=== PATIENT | male | born 1945 | race Two or more races ===

== ENCOUNTER → 2024-12-07 10:45 | Outpatient (REF) | payer OTHER, SELFPAY | LOC: RAD 10:45 | PROVIDERS: ATTENDING PHYSICIAN Student in an Organized Health Care Education/Training Program; FAMILY PHYSICIAN Family Medicine | DX: I35.0 Nonrheumatic aortic (valve) stenosis (principal) | CPT/HCPCS: 74174; 75572; Q9967 ==

== ENCOUNTER 2024-12-16 09:25 | Day surgery (SDC) | payer OTHER, SELFPAY ==
[2024-12-16] VITALS (20 sets, daily range): BP systolic 124–142; BP diastolic 53–99; BMI 27.9
[2024-12-16] MEDS: NSS 257 ML IV (10:02)
--- NOTE | 2024-12-16 10:43 | ITS.CL.PN ---
Airplane Rental Clerk - Procedure Note
Procedure
Procedure Note:
CARDIAC CATHETERIZATION REPORT
Date of Procedure: 12/16/2024
Referring: Dr. Carlito Bishop MD
Indication: Symptomatic severe aortic valve stenosis
PROCEDURE: coronary angiography
ACCESS: 6F right radial artery (closure: radial band)
CATHETERS
1. 6F JR4
2. 6F JL4
MODERATE SEDATION: 25 minutes of moderate sedation was utilized. An independent medical insurance claims specialist was present to assist with and help manage the patient's level of consciousness and physiologic status.
CORONARY ANGIOGRAPHY
Dominance: Right
LM: Large, normal
LAD: Large vessel giving rise to 3 small diagonal branches and wrapping around the apex. There are trivial luminal irregularities only.
LCx: Large vessel giving rise to a small OM1 and large OM 2. There are trivial luminal irregularities only.
RCA: Large vessel giving rise to a small RPDA and several small RPL branches. There are trivial luminal irregularities only.
RADIATION: dose 245 mGy; DAP 14.8 Gy*cm2; fluoroscopy time 3.3 min
CONCLUSION: Minimal coronary artery disease in a right dominant system
RECOMMENDATION: Proceed with TAVR
Copy to: Dr. Emmanuel Bishop MD (analyst market intelligence); Dr. Mireya Emerson DO (PCP)
Signed: Wellington Maria MD, PhD
[2024-12-16] MEDS: NSS 1000 IV (11:32)
--- NOTE | 2024-12-16 14:39 | PTCARENOTE ---
while pt getting dressed for discharge rt radial artery blead . pressure held and hematoma pushed out. dr mckeon in to assess site . will monitor pt for an additional 30 min. rt wrist soft and sl puffy and sl ecchomotic. otherwise intact.
--- NOTE | 2024-12-16 15:19 | PTCARENOTE ---
pt discharged after 30 min of observation per dr mckeon. rt wrist intact, no hematoma or bleeding .
== END 2024-12-16 15:21 | disposition home or self-care (01) ==
LOC: CATH 09:25
PROVIDERS: ATTENDING PHYSICIAN Student in an Organized Health Care Education/Training Program; FAMILY PHYSICIAN Family Medicine; OTHER PHYSICIAN Internal Medicine Cardiovascular Disease
DX: I35.0 Nonrheumatic aortic (valve) stenosis (principal); I25.10 Atherosclerotic heart disease of native coronary artery without angina pectoris; E78.5 Hyperlipidemia, unspecified; Z87.891 Personal history of nicotine dependence; R73.01 Impaired fasting glucose
CPT/HCPCS: 99152; 99153; 93454; C1894; Q9967

== ENCOUNTER 2025-02-16 04:48 | Inpatient (IN) | payer OTHER, SELFPAY ==
[2025-02-07 10:21] VITALS: BMI 28.0
--- NOTE | 2025-02-07 10:31 | HPS.HSE ---
Family Physician
-
Family Physician: Mireya Emerson, DO
Chief Complaint
-
fatigue
Pre-Evaluation for TAVR
History of Present Illness
Mr. Kaba is a very pleasant 79 yom with a past medical history significant for Aortic stenosis and hyperlipidemia. His most recent echocardiogram from 11/15/2024 is notable for an EF 68%, Aortic valve P/m 92/49, YFN 0.62, Pk jose alfredo: 4.8, DI 0.2, trace
AI, PAP 18, trace TR. Cardiac catheterization from 12/16/2024 demonstrated minimal CAD in a right dominant system. From a symptomatology standpoint, patient describes fatigue and positional dizziness that has progressed over the last six months.
Discussed the pathophysiology and treatment options of including SAVR and TAVR. Reviewed risks of the procedure including stroke, ppm, and vascular injury. Informed patient the need for dental clearance and the need for lifelong prophylactic
antibiotics prior to all dental procedures.
Assessed patient in preadmission testing and confirmed medication list. Will initiate aspirin 81 mg daily starting (02/08) and continue including the morning of TAVR. He will arrive at 0500 to the [facility]. Reviewed the risks of the procedure
including ppm,stroke, and vascular injury. Allowed for and answered questions
Medical History
Past Medical History
Past Medical History: Reports HTN, Valvular Disease (aortic stenosis), Psychiatric (anxiety/depression) and Other (RBBB, HLD, thoracic aortic ectasia, cataracts, ANGOON (H/A))
Past Surgical History: Reports Orthopedic (bilateral TKR), Tonsilectomy and Other ((R) inguinal hernia, cataract surgery)
Social History
Tobacco: Former Smoker
Alcohol: None
Drug: None
Personal:
Living: With Family
Employment: Retired
Family History
Family History: Not pertinent
Allergies / Home Medications
Allergies reflects when Allergies were last updated in [email or web address].
NKDA
Home Medications with original date entered in [email or web address]
amLODIPine Besylate 2.5 MG Tablet 1 tablet Orally Once a day
Celecoxib 200 MG Capsule 1 capsule Orally Once a day
Cephalexin 500 MG Capsule 1 capsule Orally twice a day for 7 days
Dutasteride 0.5 MG Capsule 1 capsule Orally Once a day
Lisinopril 20 MG Tablet 1 tablet Orally Once a day
Vitamin B12 100 MCG Tablet as directed Orally daily , Notes to Pharmacist: cyancobalamine
Allergy/Medication List:
NKDA
Review of Systems
-
History Source: Patient
A 12 point ROS was completed and negative except as noted: Yes
Constitutional: Reports Fatigue
Physical Exam
Physical Exam
General: Well Developed, Well Nourished, No Apparent Distress and Comfortable
HEENT: NormoCephalic
Respiratory: Clear
Cardiac: Regular Rhythm and Murmur (IV/ OMAR)
Breast: Deferred by me
GI: Soft, Non Tender and Non Distended
Rectal: Deferred by Provider
Genito-urinary: Deferred by me
Musculoskeletal: No Edema
Skin: Warm and Dry
Neuro: Awake, Alert, Oriented and AO x 3
Psych: Calm
Data Reviewed
-
Diagnostic Radiology: Report Reviewed by me
CT Scan: Report Reviewed by me and Discussed with Physician (TAVR CT scan reviewed with the heart team)
Medical Tests (Nuc Med, Echo, EKG etc): Report Reviewed by me (cardiac catheterization and echocardiogram reviewed with the heart team)
Lab Data: Labs Reviewed by me
Old Records: Reviewed
Impression/Plan
-
IMPRESSION/PLAN:
Aortic stenosis--TF TAVR planned for 02/16 utilizing a 34 mm Evolut with Allyssa Sinclair and Candace.
81 mg aspirin daily initiated 02/08
POD#06/23 echocardiogram
Cardiac rehab consult
Labs
-
Labs:
WBC 6.0 10^3/uL (4.8-10.8) 09/16/25 10:05
RBC 3.37 10^6/uL (4.70-6.10) L 02/07/25 10:05
Hgb 11.1 g/dL (13.0-18.0) L 02/07/25 10:05
Hct 32.7 % (39.0-52.0) L 02/07/25 10:05
Plt Count 136 10^3/uL (130-400) 02/07/25 10:05
Sodium 138 mmol/L (135-145) 02/07/25 10:05
Potassium 4.2 mmol/L (3.5-5.1) 02/07/25 10:05
Chloride 104 mmol/L (98-107) 02/07/25 10:05
Carbon Dioxide 28 mmol/L (22-30) 02/07/25 10:05
BUN 24 mg/dl (9-20) H 02/07/25 10:05
Creatinine 1.2 mg/dL (0.7-1.3) 02/07/25 10:05
eGFR > 60.00 02/07/25 10:05
Glucose 85 mg/dl (70-99) 02/07/25 10:05
Calcium 9.3 mg/dl (8.4-10.2) 02/07/25 10:05
Lki-M-Hfczqrvdpju Pept 1010 pg/ml 02/07/25 10:05
Albumin 4.1 g/dl (3.5-5.0) 02/07/25 10:05
[2025-02-07 10:43] LABS: Hematocrit 32.7 % (39.0-52.0); Hemoglobin 11.1 g/dL (13.0-18.0); Mean Corp Hgb Conc. 33.9 g/dL (33.0-37.0); Mean Corpuscular Volume 97.0 fL (80.0-94.0); Nucleated Red Blood Cells % 0 % (-); Platelet Count 136 10^3/uL (130-400); Red Cell Dist. Width 13.9 % (11.5-14.5)
[2025-02-07 10:43] LABS: Urine Character Clear (Clear)
[2025-02-07 11:10] LABS: INR 1.13; PT 14.8 Sec (11.4-14.6)
[2025-02-07 11:18] LABS: ALT (SGPT) 13 U/L (0-50); AST (SGOT) 18 U/L (17-59); Albumin 4.1 g/dl (3.5-5.0); Alkaline Phosphatase 53 U/L (38-126); Blood Urea Nitrogen 24 mg/dl (9-20); Calcium 9.3 mg/dl (8.4-10.2); Carbon Dioxide 28 mmol/L (22-30); Chloride 104 mmol/L (98-107); Estimated Creatinine Clearance 48 ml/min; Glucose 85 mg/dl (70-99); Potassium 4.2 mmol/L (3.5-5.1); Sodium 138 mmol/L (135-145); Total Protein 6.5 g/dl (6.3-8.2); eGFR > 60.00
[2025-02-07 11:50] LABS: Glycohemoglobin (HgbA1c) 5.4 % (4.0-5.6)
--- NOTE | 2025-02-07 16:27 | CM ---
spoke to pt in PAT, he is prev indep, live with his in a 2 story home with 6 steps to enter. he has a walker at home to use if needed. he has the TAVR educ book, soap and instructions. he is agreeable to a f/u visit from the ct transitional
care nurse after dc. plan is for TAVR 02/16, cm role explained and all questions answered.
[2025-02-16] VITALS (30 sets, daily range): BP systolic 97–135; BP diastolic 46–78; BMI 27.0
[2025-02-16] MEDS: LOW STRENGTH ASPIRIN 81 MG PO (05:25)
--- NOTE | 2025-02-16 05:35 | PTCARENOTE ---
Pt admitted to room 2258. Pt AAO x 4, VSS, moving all extremities with equal strength, pupils equal and reactive to light. denies any pain or discomfort. Noted bulging soft area in right lower back. Pt stated that he has that over 10 years. Pt
independent in the room. Call steel within reach.
--- NOTE | 2025-02-16 06:11 | W.CVOR.SURPR ---
CVOR Surgeon Immed Pre Op
-
I have examined this patient prior to performance of the scheduled procedure.
The patient's condition is unchanged from the time of the dictated/written History and
Physical and the patient is able to undergo the scheduled procedure.
[2025-02-16] MEDS: ANCEF 10 IV (07:02)
--- NOTE | 2025-02-16 08:12 | CM ---
Reviewed chart. Mr. Kaba is in the operating room today. Prior to admission he resides with his spouse in a two story home with six steps to enter. Prior to admission he was independent with ambulation and adls. He has a walker at home if needed.
Medical work-up in progress. The discharge plan is to return home with his spouse and a home visit by the Transitional Care Nurse when medically stable.
[2025-02-16 08:19] LABS: ACT-LR - POC 313 Seconds (116-155)
--- NOTE | 2025-02-16 08:47 | W.IMMPOSTOP ---
Surgical Immed Post Op Note
-
[id number]
STRUCTURAL HEART PROCEDURE NOTE: TAVR
Preoperative Dx:
Severe, calcified aortic stenosis with peak/mean gradients of 92/49 mmHg respectively, YFN 0.62, peak velocity 4.8 m/s
Pre-existing right bundle branch block
Hypertension
Thoracic aortic ectasia
Hard of hearing with bilateral hearing aids
History of depression/anxiety
History of cataracts status post surgery
Postoperative Dx:
Same
Procedures:
1. Left common femoral venous access with ultrasound and fluoroscopic guidance, Seldinger technique, long 6 Tristanian sheath placement
2. Left common femoral arterial access with tactile, ultrasound, and fluoroscopic guidance, Seldinger technique, limited angiography, long 6 Tristanian sheath placement
3. Placement of temporary RV pacing wire under fluoroscopic guidance with threshold testing
4. Placement of pigtail catheter and noncoronary cusp with limited aortography and confirmation of cusp overlap views
5. Right common femoral arterial access with tactile, ultrasound, and fluoroscopic guidance, Seldinger technique, limited angiography, 8 Tristanian dilator placement
6. Perclose placement x 2 to right common femoral artery, 8 Tristanian sheath placement
7. Serial dilation of right iliofemoral system with subsequent placement of 18 Tristanian Cook sheath (systemic heparinization)
8. Wire purchase across stenotic aortic valve (AL-1, soft-tipped straight, table J, soft-tipped straight, table J, pigtail catheter, LVEDP assessment [19mmHg])
9. Fluoroscopic inspection of TAVR valve/valve delivery system
10. Placement of Lunderquist wire and LV
11. Pre-TAVR BAV with 23 mm true balloon
12. Right transfemoral TAVR with placement of 34 mm Evolut Fx+ valve with 1 partial recapture
13. Post TAVR aortography
14. Completion TTE assessment (mean gradient 5 mmHg, no AI or PVL, no effusions)
15. Removal of valve delivery system from right common femoral artery with CODING COMPLIANCE SPECIALIST management with Perclose sutures x 2; manual pressure
16. Completion right iliofemoral angiography
17. Removal of pigtail catheter and left CODING COMPLIANCE SPECIALIST 6 Tristanian sheath with management with 6 Tristanian Angio-Seal; manual pressure
18. Temporary pacemaking wire secured in situ, pacer reassessed for capture
supervisor open hearth stockyard:
Dr. Wellington Maria
Cardiac Surgeon:
Dr. Javier Sinclair
Anesthesia:
MAC and local to bilateral groins
Complications:
Patient with transient pacing requirements that began following pre-TAVR balloon aortic valvuloplasty
Patient regained a rhythm approximately 10 minutes post valve deployment, pacer secured in situ for safety/redundancy
Cath data:
Start: 0737 hrs., Deploy: 0823 hrs., End: 0842 hrs.
FT: 19.4 minutes. mGy: 954. DAP: 73. Contrast: 170
Post TTE: Mean gradient 5 mmHg, no AI or PVL
Implants:
Medtronic Evolut Fx+; serial number: [id number]
Perclose x 2 to right CODING COMPLIANCE SPECIALIST
6 Tristanian Angio-Seal x 1 to left CODING COMPLIANCE SPECIALIST
Condition:
Stable/guarded to recovery
--- NOTE | 2025-02-16 09:12 | ITS.CL.PN ---
Risk Management Analyst - Procedure Note
Procedure
Procedure Note:
TRANSCATHETER AORTIC VALVE REPLACEMENT REPORT
Date of Procedure: 02/16/2025
Referring: .
Indication: Symptomatic severe aortic valve stenosis
Operators: Wellington Maria MD, PhD (interventional cardiology); Dr. Javier Sinclair MD (CT surgery)
Anesthesia: conscious sedation provided by the anesthesia staff
PROCEDURE: transfemoral, transcatheter aortic valve replacement with a Medtronic Evolut FX+ 34 mm valve
ACCESS:
1. 6F left femoral vein (closure: manual hemostasis) - Ultrasound was utilized for vascular access. The vessel was visualized under ultrasound and noted to be patent. An image of the vessel was stored permanently in the patient's medical record.
Under direct ultrasound guidance, vascular access was obtained using a modified Seldinger technique and a 6 Welsh sheath was placed.
2. 6F left common femoral artery (closure: Angioseal) - Ultrasound was utilized for vascular access. The vessel was visualized under ultrasound and noted to be patent. An image of the vessel was stored permanently in the patient's medical record.
Under direct ultrasound guidance, vascular access was obtained using a modified Seldinger technique and a 6 Welsh sheath was placed.
3. 18 F right common femoral artery (closure: Perclose x2) - Ultrasound was utilized for vascular access. The vessel was visualized under ultrasound and noted to be patent. An image of the vessel was stored permanently in the patient's medical
record. Under direct ultrasound guidance, vascular access was obtained using a modified Seldinger technique and a 8 Welsh sheath was placed.
HEMODYNAMIC DATA
LVEDP 19 mmHg
PROCEDURE NARRATIVE:
The patient was prepped and draped in standard sterile fashion. Conscious sedation was provided by the anesthesia staff. 6F left femoral vein and left common femoral artery access was obtained with ultrasound guidance using micropuncture technique
with verification of appropriate arteriotomy location via hand injection angiography. A temporary venous pacing wire was advanced via the left femoral vein to the right ventricle under fluoroscopic guidance with appropriate capture verified. A 5F
pigtail catheter was advanced via the left common femoral artery and seated in the non-coronary cusp. Angiography was performed to verify the cusp overlap angle.
8F right common femoral artery access was obtained with ultrasound guidance using micropuncture technique with verification of appropriate arteriotomy location via hand injection angiography. The arteriotomy was preclosed with two Perclose sutures
followed by replacement of the 8F sheath. Using an AL1 catheter, a Lunderquist wire was placed in the descending thoracic aorta. A 14F dilator was advanced over the Lunderquist wire followed by placement of a 18F Cook sheath. Heparin 7000 units was
given. The AL1 catheter was re-advanced through the sheath to the level of the ascending aorta. The Lunderquist wire was exchanged for a soft tipped straight wire which was used to cross the aortic valve and deposit the AL1 in the LV apex. A J-wire
was used to exchange the AL1 for a pigtail catheter in the LV and LVEDP was measured. The Lunderquist wire was advanced through the pigtail catheter and seated in the LV apex. ACT was checked and confirmed to be >300 seconds.
A 23 mm True valvuloplasty balloon was advanced over the Lunderquist wire and into the aortic annulus. Valvuloplasty was performed under rapid pacing with good balloon expansion. The valvuloplasty balloon was removed.
The valve was inspected under fluoroscopy to confirm lack of infolding above the 2nd node. The Cook sheath was removed, and the in-line sheath was advanced over the Lunderquist wire into the descending aorta. The valve was then advanced over the
aortic arch and into the left ventricle. In the cusp overlap view, the valve was slowly deployed to the point of flowering. The patient was paced to adequately lower pulse pressure as the valve was deployed through the rumble strips to 80%.
Injection demonstrated a non-coronary cusp implant depth of 2 mm. Angiography performed in an BENGALI projection demonstrated left coronary cusp implant depth of 4 mm. The decision was made to proceed with full deployment. The Lunderquist wire was
partially withdrawn to lift the nose cone of the valve delivery device. In the BENGALI view, the delivery handle was slowly rotated until both paddles were released from the superior aspect of the valve. The delivery device was withdrawn to the
descending aorta and re-assembled. The patient was resuscitated by anesthesia with recovery of adequate blood pressure. Telemetry demonstrating complete heart block. Aortography demonstrated good valve positioning, adequate coronary filling, and no
aortic valve insufficiency. Echocardiography confirmed no aortic insufficiency. Mean valve gradient was 5 mmHg. Transient heart block recovered to first degree AV block.
The valve deployment system and inline sheath were removed, and hemostasis obtained with the two Perclose sutures. Protamine 30 mg was given. Aortoiliac angiography demonstrated no evidence of iliofemoral dissection/perforation and good runoff below
the common femoral artery bilaterally. The pigtail catheter was removed. The left femoral artery sheath was removed using a 6F Angioseal. The left femoral venous sheath and pacemaker were left in place.
CONCLUSION: successful placement of a Medtronic Evolut FX+ 34 mm transcatheter aortic valve via right transfemoral approach with no acute complications
Copy to: Dr. Emmanuel Bishop MD (package center supervisor); Mireya Emerson DO (PCP)
Signed: Wellington Maria MD, PhD
[2025-02-16] MEDS: LEVOPHED 250 IV (09:28)
--- NOTE | 2025-02-16 10:09 | PTCARENOTE ---
Received the patient from the director of laboratory operations in his bed. The patient ia aaox3 bust drowsy. His vital signs are stable. 95% on RA. Norepinephrine is running at 3.8 mcg/min. he has no complaints of pain. BL groin sites are c/d/i. Temporary pacer is going
through his left femoral vein. Pacer is set at VVI 40 ppm with 20 MA output. BL pedal pulse are noted. Lungs are clear. I instructed the patient on his activity restrictions and expected oob time.
--- NOTE | 2025-02-16 10:52 | PTCARENOTE ---
Addendum entered by Tiffany Ruvalcaba RN 02/16/25 11:28:
with a first degree AVB noted
Addendum entered by Tiffany Ruvalcaba RN 02/16/25 11:27:
Sinus antelmo on the monitor with HRs in the 50s.
Original Note:
Received the patient from the pathology lab technician in his bed. The patient ia aaox3 bust drowsy. His vital signs are stable. 95% on RA. Norepinephrine is running at 1 mcg/min. he has no complaints of pain. BL groin sites are c/d/i. Temporary pacer is going
through his left femoral vein. Pacer is set at VVI 40 ppm with 20 MA output. BL pedal pulse are noted. Lungs are clear. I instructed the patient on his activity restrictions and expected oob time.
--- NOTE | 2025-02-16 10:58 | PTCARENOTE ---
Last 2 BPs were 102/53 and 116/49. Norepinephrine infusion weaned off.
--- NOTE | 2025-02-16 11:05 | PTCARENOTE ---
Temporary transvenous pacemaker reset to the physician's order at a rate of 40 bpm and output of 10 MA.
[2025-02-16] MEDS: ROXICODONE 2.5 MG PO (11:58)
[2025-02-16] MEDS: ANCEF 5 IV (13:00)
[2025-02-16] MEDS: FLUSH (NSS) 2 FLUSH IV (13:02)
[2025-02-17] VITALS (27 sets, daily range): BP systolic 104–152; BP diastolic 43–112; PULSE 72–78; O2SAT 98–100; BMI 27.5
--- NOTE | 2025-02-17 | PTCARENOTE ---
Pt rec'd at change of shift in bed. Assisted oob to recliner for a couple of hours. Pt c/o feeling dizzy upon standing but quickly stated it improved. No c/o dizziness once sitting. Pt states this happens all the time at home and he uses his or
door jams to get to bathroom safely. When asked about a walker pt stated 'I have one but don't want to use it'. Neuro check unchanged. ABDULKADIR, equal hand grasps. At 2342 pt had short run of svt < 6 sec
B/p 120/49. Pt denied feeling palpitations stating he was sleeping and unaware of any complaints. cardiac PA Merna made aware.
[2025-02-17 04:16] LABS: Hematocrit 28.8 % (39.0-52.0); Hemoglobin 10.0 g/dL (13.0-18.0); Mean Corp Hgb Conc. 34.7 g/dL (33.0-37.0); Mean Corpuscular Volume 97.3 fL (80.0-94.0); Platelet Count 115 10^3/uL (130-400); Red Cell Dist. Width 13.4 % (11.5-14.5)
--- NOTE | 2025-02-17 04:21 | PTCARENOTE ---
Pt with No further tachy episodes noted on applications processor since 2341. B/L groin sites remain intact, no active bleeding or hematoma present
[2025-02-17 04:47] LABS: Blood Urea Nitrogen 25 mg/dl (9-20); Calcium 8.4 mg/dl (8.4-10.2); Carbon Dioxide 27 mmol/L (22-30); Chloride 107 mmol/L (98-107); Estimated Creatinine Clearance 53 ml/min; Glucose 95 mg/dl (70-99); Potassium 4.3 mmol/L (3.5-5.1); Sodium 137 mmol/L (135-145); eGFR > 60.00
[2025-02-17] MEDS: TYLENOL 650 MG PO (05:18)
--- NOTE | 2025-02-17 06:51 | W.PN.CT ---
Today's Communication / Plan
-
-pod #1
-no issues overnight
-nr 60s-70s, brief SVT (asymptomatic, sleeping). No antelmo or pauses
-preop 1st degree AVB and RBBB. ECG appears at baseline
-Echo today
-current meds (ASA, Norvasc, Proscar, Celebrex)
-possible d/c with Rhythm monitor
Assessment / Plan
-
- Severe symptomatic - s/p Pre-TAVR BAV with 23 mm true balloon followed by Right transfemoral TAVR with placement of 34 mm Evolut Fx+ valve with 1 partial recapture on 02/16/25, pod #1
- Post TTE: Mean gradient 5 mmHg, no AI or PVL
- Transient pacing requirements that began following pre-TAVR balloon aortic valvuloplasty
- Pre-existing right bundle branch block
- Hypertension
- Thoracic aortic ectasia
- Hard of hearing with bilateral hearing aids
- History of depression/anxiety
- History of cataracts status post surgery
Discussed patient care with: Nursing and Care Team
Subjective
-
Date of Service: February 17, 2025
Objective Data
-
PT 14.8 Sec (11.4-14.6) H 02/07/25 10:05
INR 1.13 02/07/25 10:05
Vital Signs
Vital Signs
Temp Pulse Resp BP Pulse Ox
98.9 F 65 20 120/49 100
02/16/25 22:14 02/17/25 00:00 02/16/25 22:14 02/16/25 23:43 02/16/25 22:14
CT Intake/Output/Weight
02/16/25 02/16/25 02/17/25
06:59 18:59 06:59
Intake Total 1400 / 1640 240 / 1640
Output Total 500 / 500
Balance 900 / 1140 240 / 1140
SaO2: 100
Physical Exam
-
General: Awake and AOx3
Cardiovascular: Regular rate & rhythm and Murmur (1/6 systolic @ lsb)
Respiratory: Rales (at bases. No wheeze)
Incision: Clean (b/l groins are cdi, soft, nontender, no hematoma b/l)
Extremities: No Edema
Data Reviewed
-
Lab Results: Results Reviewed
Medications: Active Meds Reviewed
Chest X-Ray: Report Reviewed and Image Reviewed
ECG: Report Reviewed and Image Reviewed
--- NOTE | 2025-02-17 07:40 | W.PN.ANS.POP ---
Anesthesia Post Operative
- Anesthesia Post Op Note
Vital Signs Stable-See Nursing Note: Yes
Airway Patent: Yes
Adequate Pain Control: Yes
Change in Mental Status: No
Current Postoperative Nausea & Vomiting: No
Anesthesia Complications: No
General Anesthetic Recall: No
Unplanned Admission: No
Post Op Hydration Adequate: Yes
--- NOTE | 2025-02-17 08:49 | W.DCSUMMARY ---
Addendum entered and electronically signed by Natalie Verdugo NP 02/17/25 14:19:
Prior to removal of telemetry upon discharge, patient noted to have 11.5 second pause with intermittent LOC. Pads placed on patient with Zoll if transcutaneous pacing needed to back-up rate of [address] Maria and Dr. Sinclair aware and plan for
emergent PPM. Dr. Dorantes at bedside.
Original Note:
Discharge Summary
Discharge Data
Date of Admission: 02/16/25
Date of Discharge: 02/17/25
-
Pending Results: No
Hospital Course
Primary care physician: Dr. Mireya Emerson
Outpatient abalone diver: Dr. Khalil
Inpatient consultants: [facility] - Dr. Maria
Procedures:
1. Right Transfemoral TAVR with #34 mm Evolut Fx+ valve by Dr. Javier Sinclair and Dr. Wellington Maria on 02/16/25
Primary Diagnosis:
1. Severe, symptomatic Aortic Stenosis
Secondary Diagnoses:
1. HFpEF (EF 50-65%)
2. Pre-existing right bundle brand block
3. Hypertension/Hyperlipidemia
4. Thoracic aortic ectasia
5. QUILEUTE with b/l hearing aides
6. Depression/Anxiety
7. Cataracts s/p surgery
8. B/L TKR
9. Tonsillectomy
HPI: Mr. Dao Kaba is an 79-year-old male with a PMHx of severe aortic stenosis who presented for outpatient consultation with complaints of progressive, positional dizziness over the last 6 months and fatigue. After undergoing extensive
outpatient consultation with the structural heart team at [facility] for intervention of his severe, symptomatic aortic stenosis in which he was referred for TAVR.
Hospital course: Mr. Kaba was electively admitted on 02/16/25 underwent a transfemoral TAVR via right femoral artery with successful placement of 34 mm Evolut Fx+ valve by Dr. Javier Sinclair and Dr. Wellington Maria. Prior to TAVR valve placement,
pre-TAVR BAV with 23 mm true balloon was performed. Please see interventionalist and surgeons post-operative notes for complete details of procedure. Intraoperatively there were no significant events and the patient wend directly to mobile home laborer
recover. Immediate post-operative TTE showed an EF of 50-65%, AV peak/mean gradient of 9/5, respectively, without AI. Postoperatively EKG showed SB with 1st degree AVB (416), LAD, RBBB, in compared to preoperative EKG of NSR with 1st degree AVB
(258) and RBBB. B/L groin sites remained stable and patient was transferred to the Interventional Unit for the remainder of their recovery. On postoperative day 1, patient was ambulating within the room without difficultly, tolerating their diet,
and denied any cardiopulmonary complaints. TTE showed EF 60-65%, AV with P/M 19/20, respectively without AI, or pericardial effusion. EKG showed SR with 1st degree AVB (IVETTE 250), RBBB, and LAFB. Patient was hemodynamically stable for discharge to
home with family. Weight upon discharge was 84.4 kg, with pre-operative weight of 83 kg. Home medications were resumed with long-term plan to continue Aspirin 81 mg PO daily s/p TAVR. Patient was sent home with remote telemetry monitoring for AVB
prolongation following TAVR. Patient will have a follow-up visit with the Transitional Care Nursing team with [facility]. A TTE will be repeated in 30-days following TAVR with outpatient follow-up with their Lottery Manager. The importance of antibiotic
prophylaxis prior to dental procedures was discussed with patient.
Home medication changes:
- Aspirin 81 mg PO daily - s/p TAVR for blood clot prevention
Discharge Plan
-
Discharge Diagnosis/Procedures: Right Transfemoral TAVR (34 mm Evolut FX+ valve) with Dr. Javier Sinclair and Wellington Maria
Diet: Low Fat, Low Cholesterol and 2 Gram Sodium
Activity: As tolerated
Additional Activity: No heavy lifting anything greater than 10 lbs for 1-week.
Driving Restrictions: No driving for 1 week
Bathing Restrictions: OK to Shower
Others Tests: Please call Dr. Khalil's office to schedule your 30-day follow-up echocardiogram.
Other Services: Cardiac Rehab
Wound Care: No lotions, powders, or creams to puncture sites.
Specialty Instructions: Weigh Daily- Call MD for wt gain/loss 3 lbs overnight/5 lbs in 1 week
Referrals:
CT Transitional Care Nurse [Outside] - in one to two days
Referral Note:
The Cardiothoracic Transitional Care Nurse will call you to set up a visit in 1-2 days.
[facility]. Cardiac Rehab [Outside] - 03/17/25 10:00 am
Referral Note: Cardiac Rehab Orientation appointment is on 03/17/25 at 10:00
The Cardiac Rehab gym is located on the first floor of the [facility]ovascular [facility].
Thu Mccall PA-C [Non-Admitting Privileges] - 03/16/25 11:30 am
Mireya Emerson DO [Family Provider, Family Practice] - in four to six weeks
Referral Note: Please make an appointment in four to six weeks.
Prescriptions:
New
acetaminophen 325 mg Tablet
650 mg PO Q6HPRN PRN (Reason: REYNA, mild pain, or fever >101F) Qty: 0 0RF
aspirin 81 mg Tablet,Delayed Release (Dr/Ec)
81 mg PO DAILY Qty: 0 0RF
Continued
celecoxib 200 mg Capsule
200 mg PO DAILY
amlodipine 2.5 mg Tablet
2.5 mg PO DAILY
dutasteride 0.5 mg Capsule
0.5 mg PO DAILY
cyanocobalamin (vitamin B-12) [Vitamin B-12] 1,000 mcg Tablet
1,000 mcg PO DAILY
sertraline 25 mg Tablet
25 mg PO DAILY
No Action
lisinopril 20 mg Tablet
10 mg PO DAILY
Patient Comments:
Patient states does not take anymore.
Care Plan Goals
Care Plan Goals:
Problem: Readiness for enhanced knowledge related to diagnosis and treatment plan
Goal: Understand your diagnosis and treatment plan needs, including medications if applicable.
Instructions: Know your diagnosis, underlying causes and treatment plan options, including medications if applicable. Consult with your health care team to learn about your diagnosis and treatment plan, including medications if applicable.
Discharge Date and Time
Print Language: HUNGARIAN
[2025-02-17] MEDS: ANCEF 10 IV (09:47)
[2025-02-17] MEDS: VITAMIN B-12 1000 MCG PO (09:48)
[2025-02-17] MEDS: ZOLOFT 25 MG PO (09:48)
[2025-02-17] MEDS: CELEBREX 200 MG PO (09:48)
[2025-02-17] MEDS: ASPIR LOW (ENTERIC COATED) 81 MG PO (09:48)
[2025-02-17] MEDS: NORVASC 2.5 MG PO (09:48)
[2025-02-17] MEDS: PROSCAR 5 MG PO (09:49)
--- NOTE | 2025-02-17 11:19 | PTCARENOTE ---
Assumed care of the pt @ 0700. Pt is AAOx3 SR 1st AVB on the monitor + palpable pulses denies cp. c/o feeling dizzy when standing ' I always feel dizzy when I stand up.' Orthostatics checked were neg. Family at bedside call steel within reach. POC
discussed with pt call steel within reach.
--- NOTE | 2025-02-17 12:13 | CM ---
Reviewed chart. Met with and Mrs. Kaba to review discharge plans. He states he is feeling well and maybe able to go home soon. He states prior to admission he resides with his spouse in a two story home with six steps to enter. He states
he has a full flight of steps to get to bedroom/full bathroom. He states he has a powder room on the first floor. He states prior to admission he was independent with ambulation and adls. He has a walker at home to use if needed. He has a
prescription plan. We reviewed a home visit by the Transitional Care Nurse. He is agreeable to home visit. He states his spouse will be home over the weekend to assist in his care if needed. Medical work-up in progress. The discharge plan is to
return home with his spouse and a home visit by the Transitional Care Nurse when medically stable.
--- NOTE | 2025-02-17 12:22 | W.PN.CD ---
Today's Communication / Plan
-
discharge pending echo and ambulation
Impression / Plan
-
79M POD1 status post TAVR with Evolut 34 mm self expanding valve, final gradient 5 mmHg and no PVL. Had transient CHB that resolved 20 minutes post valve deployment and maintained sinus rhythm overnight.
feeling well, groins cdi
VSS
tele stable
EKG stable RBBB
echo pending
Plan:
- standard post-TAVR care with discharge today pending ambulation and echo
- 2 week application engineer
- asa
Physical Exam
Vital Signs/Labs
Vital Signs
Temp Pulse Resp BP Pulse Ox
37.6 C 64 20 133/88 99
02/17/25 12:10 02/17/25 08:00 02/17/25 12:10 02/17/25 03:47 02/17/25 12:10
02/16/25 02/17/25 02/18/25
06:59 06:59 06:59
Actual Weight 82.9 kg 84.4 kg
02/17/25 03:58
02/17/25 03:59
PT 14.8 Sec (11.4-14.6) H 02/07/25 10:05
INR 1.13 02/07/25 10:05
02/07/25
10:05
Edx-A-[id number] Pept 1010
Physical Exam
Constitutional: Comfortable
Cardiovascular: Rhythm & rate is regular
Respiratory: Respiratory effort normal
Neuro/Psych: AO x 3
Other: Cath Site
cdi
Data Reviewed
-
Date of Service: February 17, 2025
Medical Decision Making: Reviewed Test Results
EKG: Tracing Personally Visualized and interpreted
X-Ray/CT/US/MRI/NUC/PET: Image Personally Visualized and interpreted
Labs: Labs Reviewed by
[2025-02-17] MEDS: DOPamine 400 MG 250 IV (14:30)
--- NOTE | 2025-02-17 15:13 | PTCARENOTE ---
Addendum entered by Rosa Hanley RN 02/17/25 15:27:
Pt was placed on 2 LPM NC Sat 97%.
Original Note:
@1341 Pt had 11 sec pause on the monitor. Pt was responsive upon entering the room and BP 144/53. Landon Guerrero REHABILITATION LIAISON @ bedside and pacer pads placed on pt. At 1341 Pt had a 2nd pause 13.5 sec at this point temp pacing was initiated @ a rate of 40 bpm MA 10.
Dopamine gtt started @ 5mcg/kg/min. Pt was transferred to industrial laborer for temporary pacer. Report given to Yahaira. See flowsheet for VS
--- NOTE | 2025-02-17 15:30 | PTCARENOTE ---
Pt received s/p temp wire placement from labor arbitrator hearing office. Pt assessed lying flat. Pt alert and oriented x4. [place] hearing aids intact. KOENIG with equal strength throughout. SR with occasional v-pacing from temp pacer. Inappropriate pacer spikes, adjusted
sensitivity. pacer settings VVI 60/10/1. Bilateral and DP pulses palpable throughout. No edema noted. POX 98% on 2L NC. Lungs clear throughout. No cough noted. Abdomen soft, round nontender. +BS. Pt voided 175ml felipe urine in the urinal. left groin
with venous sheath and temp pacer intact, KVO infusing. Right groin soft, nontender. Left groin soft, nontender. PIV x2 intact. Plan of care update pt to return to labor arbitrator hearing office for PPM, Dr. Sinclair and Dr. Dorantes at bedside to inform patient.
--- NOTE | 2025-02-17 15:39 | ITS.CL.PN ---
Supervisor Records Change - Procedure Note
Procedure
Procedure Note:
CARDIAC CATHETERIZATION REPORT
Date of Procedure: 02/17/2025
Referring: Dr. Javier Sinclair MD
Indication: Complete heart block status post TAVR
PROCEDURE: temporary venous pacemaker
ACCESS: 6F left femoral vein
CATHETERS: 6F TVP
MODERATE SEDATION: 25 minutes of moderate sedation was utilized. An independent auditor medical claims was present to assist with and help manage the patient's level of consciousness and physiologic status.
PROCEDURE DESCRIPTION: 6 [place] left femoral vein access was obtained under ultrasound guidance. A 6 [place] temporary venous pacemaker was advanced to the RV apex and capture verified with a threshold of 1.0 mA. The pacemaker was set to backup with
a an output of 10 mA and rate of 60.
RECOMMENDATIONS: Proceed with permanent pacemaker implantation this evening
Copy to: Dr. Emmanuel Bishop MD (branch office manager); Mireya Emerson DO (PCP)
Signed: Wellington Maria MD, PhD
--- NOTE | 2025-02-17 16:00 | PTCARENOTE ---
slab polisher at bedside to take patient for PPM.
--- NOTE | 2025-02-17 17:57 | ITS.CL.PACE ---
Surface Grinder - Pacemaker Implant
Pacemaker Implant
Procedure Report:
Date of Procedure: February 17, 2025.
Procedure: Pacemaker Implantation. Left upper extremity venogram.
Indication: The pacemaker is for the treatment of nonreversible symptomatic bradycardia due to third degree atrioventricular block after TAVR.
Performing physician: Ryan Dorantes MD, [facility].
Implants:
Pulse Generator: Medtronic; Model# [id number]; Serial# [id number].
RA Lead: Medtronic; Model# 5076-45cm; Serial# [id number].
RV Lead: Medtronic; Model# 3830-69cm; Serial# [id number].
Technique: A time out was performed. A 10 mL upper extremity venogram demonstrated patent left/right axillary, cephalic, and subclavian veins. The procedure site was identified. The patient was anesthetized by the anesthesia service. Preoperative
cefazolin was administered. The patient was prepped and draped in the usual fashion. Local anesthetic was applied to the left prepectoral subcutaneous tissue. A 3 inch incision was made along the left deltopectoral groove. Dissection was carried to
the fascia. The left cephalic vein was easily isolated and proximal and distal control with 2-0 Vicryl suture. Using a micropuncture needle to access the cephalic vein under direct visualization a wire was advanced into the central circulation. A 7
Fr introducer was placed to allow two 0.35 J wires to be advanced. The leads were introduced with hemostatic peel away introducer sheaths. The RV lead was placed using utilizing the [employer] His delivery catheter ([id number]) that was advanced to the
left bundle area as confirmed by fluoroscopy in the MINI and JOSHI projections. The lead tip was advanced. PVC morphology was reviewed. When a satisfactory location was identified (W pattern observed) the lead was screwed into position with serial
turns. Septal engagement was confirmed with gentle torque applied to the guide sheath. After each series of turns (2-3) unipolar sensed morphology and impedance, and paced morphology of V1 was analyzed. The lead was further advanced until
satisfactory morphology and electrical characteristics were confirmed. The RV lead was placed in the about the fourth location evaluated. The long guiding sheath was cut and removed from the RV without change in lead position, impedance, sensing, or
capture. The ventricular lead was secured to the pectoralis muscle and fascia with two 0-silk sutures. The atrial lead was placed in the right atrial appendage. 8 volt pacing from each lead did not capture the diaphragm. The atrial leads was secured
to the pectoralis muscle and fascia. A subcutaneous pocket was created with Bovie cautery. Hemostasis was excellent. The leads were appropriately attached to the device. The pocket was irrigated with antibiotic solution. The device and leads were
placed in the pocket. The incision was closed in three layers with absorbable suture. Steri-strips and a silver impregnated dressing were placed. Estimated blood loss was 5 ml. There were no complications. Fluoroscopy time 3.8 minutes and DAP 1.42
GyCM2. The device was then interrogated after skin closure. The temporary pacing was removed under fluoroscopy and the sheath was removed from the groin and hemostasis was achieved with manual compression.
Lead Analysis:
RA lead: P: 1.3 mV; Threshold: 1 V @ 0.4 ms; Impedance: 418 ohms.
RV lead (bipolar): R: 8 mV; Threshold: 0.75 V @ 0.4 ms; Impedance: 703 ohms.
RV lead (unipolar): R: 6.5 mV; Threshold: 0.75 V @ 0.4 ms; Impedance: 513 ohms.
Paced QRS characteristics (similar unipolar and bipolar): V1 has Qr morphology and measures 110 ms in duration, LVAT (stim to peak V5/V6) is 60 ms, and R peak V1 to R peak V6 is 40 ms.
Final Programming: DDDR 60-130 bpm.
Conclusion: Uncomplicated Medtronic pacemaker implant. The pacing system is MRI conditional.
Recommendation: Routine post pacemaker care.
cc: Morgan Maria MD. PhD, Javier Sinclair MD, Emmanuel Bishop M.D, Mireya Emerson, DO.
--- NOTE | 2025-02-17 18:15 | PTCARENOTE ---
Pt received from carpenter/labor s/p PPM. DDDR 60-130. Pt alert and oriented x4. denies pain. V-paced on tele with rates in 80s. BP 124/56. POX 94% on RA. Pt voided 200ml felipe urine in the urinal. Left groin old sheath site soft, dressing CDI. Remains
bedrest until 2114. EKG completed. Left chest wall PPM site soft, no drainage noted. Plan of care reviewed and patient in agreement. Pt's called and updated.
--- NOTE | 2025-02-17 20:39 | PTCARENOTE ---
assumed care of patient @ 1900. received pt laying flat in bed, AOx3. LOWER BRULE b/l. KOENIG. V paced in the 80s, BP stable. Lungs clear on room air. tolerating diet. voiding felipe urine in urinal. L chest wall pressure dressing intact, B/L groin sites CDI no
hematoma noted. L wrist and R forearm PIV intact. off bed rest at 0. resting comfortably with call steel within reach .
[2025-02-17] MEDS: ANCEF 5 IV (21:06)
--- NOTE | 2025-02-17 21:58 | PTCARENOTE ---
pt off bed rest, ambulated in room and now sitting in chair. groin intact, no hematoma. resting comfortably in chair with call steel within reach .
[2025-02-18] VITALS (9 sets, daily range): BP systolic 101–147; BP diastolic 47–73; PULSE 72; O2SAT 97–99; BMI 27.8
--- NOTE | 2025-02-18 | PTCARENOTE ---
pt resting comfortably in bed, no change in assessment.
--- NOTE | 2025-02-18 04:00 | PTCARENOTE ---
labs drawn, EKG done. pt resting comfortably in bed with call steel within reach .
[2025-02-18 05:10] LABS: Hematocrit 26.5 % (39.0-52.0); Hemoglobin 9.1 g/dL (13.0-18.0); Mean Corp Hgb Conc. 34.3 g/dL (33.0-37.0); Mean Corpuscular Volume 96.0 fL (80.0-94.0); Platelet Count 119 10^3/uL (130-400); Red Cell Dist. Width 13.6 % (11.5-14.5)
--- NOTE | 2025-02-18 05:24 | W.PN.CT ---
Addendum entered and electronically signed by Javier Sinclair MD 02/18/25 09:18:
I saw and examined the patient.
The PA's note was reviewed and I agree with the note.
Comment:
POD#2 s/p TAVR, POD#1 s/p PPM
Doing well. Echo yesterday w/ P/M: 12/03, no AI; LVEF 60-65%.
- Interrogate PPM
- Diuresis today (creat 1.0)
- D/C planning for home later today
- ASA only anticoagulation
Original Note:
Today's Communication / Plan
-
-POD #2
-prior to DC noted to have 11.5 second pause with intermittent LOC, now s/p TVP then PPM
-100% paced, BP stable, no orthostasis s/p PPM
-current meds (ASA, Norvasc, Proscar, Celebrex)
-OOB
Assessment / Plan
-
- Severe symptomatic - s/p Pre-TAVR BAV with 23 mm true balloon followed by Right transfemoral TAVR with placement of 34 mm Evolut Fx+ valve with 1 partial recapture on 02/16/25, pod #2, s/p PPM POD #1
- Post TTE: Mean gradient 5 mmHg, no AI or PVL
- Transient pacing requirements that began following pre-TAVR balloon aortic valvuloplasty
- Pre-existing right bundle branch block
- Hypertension
- Thoracic aortic ectasia
- Hard of hearing with bilateral hearing aids
- History of depression/anxiety
- History of cataracts status post surgery
-acute post op CHB
-post op syncope
Subjective
-
Date of Service: February 18, 2025
Objective Data
-
Lab Results
02/18/25 04:47
PT 14.8 Sec (11.4-14.6) H 02/07/25 10:05
INR 1.13 02/07/25 10:05
Vital Signs
Vital Signs
Temp Pulse Resp BP Pulse Ox
98.6 F 79 16 147/61 95
02/18/25 00:00 02/18/25 02:30 02/18/25 00:00 02/18/25 00:00 02/18/25 00:00
CT Intake/Output/Weight
02/17/25 02/17/25 02/18/25
06:59 18:59 06:59
Intake Total 480 / 1880
Output Total 400 / 400
Balance 480 / 1380 -400 / -400
SaO2: 95
Physical Exam
-
General: Awake and Oriented
Cardiovascular: Regular rate & rhythm, No Murmurs and No Rub
Respiratory: Clear and Equal
Incision: Clean, Dry and Intact
Extremities: No Edema
Data Reviewed
-
Lab Results: Results Reviewed
Medications: Active Meds Reviewed
Chest X-Ray: Report Reviewed
ECG: Report Reviewed
[2025-02-18 05:25] LABS: Blood Urea Nitrogen 25 mg/dl (9-20); Calcium 8.1 mg/dl (8.4-10.2); Carbon Dioxide 25 mmol/L (22-30); Chloride 107 mmol/L (98-107); Estimated Creatinine Clearance 58 ml/min; Glucose 107 mg/dl (70-99); Magnesium 2.0 mg/dl (1.6-2.3); Potassium 4.2 mmol/L (3.5-5.1); Sodium 135 mmol/L (135-145); eGFR > 60.00
[2025-02-18] MEDS: ANCEF 5 IV (06:25)
--- NOTE | 2025-02-18 07:45 | PTCARENOTE ---
Resumed care of patient. Pt assessed while he was laying in bed. Pt alert and oriented x4. Denies pain, shortness of breath, and nausea. KOENIG with equal strength throughout. Able to get OOB independently. V-paced on tele via PPM set to DDDR 60-130.
Bilateral radial and DP pulses palpable. No edema noted. POX 95% on RA. Lungs clear throughout. No cough noted. Abdomen soft, round, nontender +BS. Pt voiding in the urinal, no complaints. Right and left groin puncture sites soft, nontender, CDI.
Left upper chest PPM incision covered with pressure dressing, CDI. PIV x2 intact. See MAR for medication administration. See worklist for complete nursing assessment. Plan of care reviewed and patient in agreement.
[2025-02-18] MEDS: CELEBREX 200 MG PO (07:55)
[2025-02-18] MEDS: ZOLOFT 25 MG PO (07:56)
[2025-02-18] MEDS: PROSCAR 5 MG PO (07:56)
[2025-02-18] MEDS: VITAMIN B-12 1000 MCG PO (07:56)
[2025-02-18] MEDS: ASPIR LOW (ENTERIC COATED) 81 MG PO (07:56)
[2025-02-18] MEDS: NORVASC 2.5 MG PO (07:56)
--- NOTE | 2025-02-18 09:47 | W.PN.UPDATE ---
Update Note
Progress Note Update
EP Update:
Tele overnight, post pacer CXR, EKG, pacer site all reviewed and look great. EKG not classic R wave in V1 but a tiny one is present, LVAT on AM EKG is very good. Pain control at pacer site is good. Pressure dressing removed. No bleeding or
hematoma. No compilations from pacer placement detected. OK for home. Our pacer nurse in the office was updated on implant and device followup is being arranged. Post pacer site care/mild arm restrictions reviewed by me with the patient.
EP will sign off. OK for discharge from our perspective.
[2025-02-18] MEDS: LASIX 40 MG IV (10:20)
--- NOTE | 2025-02-18 10:26 | PTCARENOTE ---
care link competed as per Dr. Dorantes.
--- NOTE | 2025-02-18 11:09 | W.DCSUMMARY ---
Discharge Summary
Discharge Data
Date of Admission: 02/16/25
Date of Discharge: 02/18/25
Total time spent discharging patient (in min): 40
-
Pending Results: No
Hospital Course
Primary care physician: Dr. Mireya Emerson
Outpatient assembler production line: Dr. Khalil
Inpatient consultants: [facility] - Dr. Maria
Procedures:
1. Right Transfemoral TAVR with #34 mm Evolut Fx+ valve by Dr. Javier Sinclair and Dr. Wellington Maria on 02/16/25
Primary Diagnosis:
1. Severe, symptomatic Aortic Stenosis
Secondary Diagnoses:
1. HFpEF (EF 50-65%)
2. Pre-existing right bundle brand block
3. Hypertension/Hyperlipidemia
4. Thoracic aortic ectasia
5. NIKOLAI with b/l hearing aides
6. Depression/Anxiety
7. Cataracts s/p surgery
8. B/L TKR
9. Tonsillectomy
HPI: Mr. Dao Kaba is an 79-year-old male with a PMHx of severe aortic stenosis who presented for outpatient consultation with complaints of progressive, positional dizziness over the last 6 months and fatigue. After undergoing extensive
outpatient consultation with the structural heart team at [facility] for intervention of his severe, symptomatic aortic stenosis in which he was referred for TAVR.
Hospital course: Mr. Kaba was electively admitted on 02/16/25 underwent a transfemoral TAVR via right femoral artery with successful placement of 34 mm Evolut Fx+ valve by Dr. Javier Sinclair and Dr. Wellington Maria. Prior to TAVR valve placement,
pre-TAVR BAV with 23 mm true balloon was performed. Please see interventionalist and surgeons post-operative notes for complete details of procedure. 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
recover. Immediate post-operative TTE showed an EF of 50-65%, AV peak/mean gradient of 9/5, respectively, without AI. Postoperatively EKG showed SB with 1st degree AVB (416), LAD, RBBB, in compared to preoperative EKG of NSR with 1st degree AVB
(258) and RBBB. B/L groin sites remained stable and patient was transferred to the Interventional Unit for the remainder of their recovery. On postoperative day 1, patient was ambulating within the room without difficultly, tolerating their diet,
and denied any cardiopulmonary complaints. TTE showed EF 60-65%, AV with P/M 19/20, respectively without AI, or pericardial effusion. EKG showed SR with 1st degree AVB (IVETTE 250), RBBB, and LAFB. Patient was hemodynamically stable for discharge to
home with family. Weight upon discharge was 84.4 kg, with pre-operative weight of 83 kg. Home medications were resumed with long-term plan to continue Aspirin 81 mg PO daily s/p TAVR. Prior to his discharge yesterday he noted to be in CHB with
significant pauses. Patient was urgently sent to the [facility] for TVP and discharge was delayed. Later that evening he received a successful PPM placement. On 02/18, he was stable and PPM was functioning properly and patient was deemed stable for
discharge. Patient will have a follow-up visit with the Transitional Care Nursing team with [facility]. A TTE will be repeated in 30-days following TAVR with outpatient follow-up with their Roll Forming Supervisor.
Home medication changes:
- Aspirin 81 mg PO daily - s/p TAVR for blood clot prevention
Discharge Plan
-
Patient Disposition: Home (Routine Discharge)
Discharge Diagnosis/Procedures: Right Transfemoral TAVR (34 mm Evolut FX+ valve) with Dr. Javier Sinclair and Wellington Maria, Pacemaker implant 02/17/25
Condition: Good
Diet: Low Fat, Low Cholesterol and 2 Gram Sodium
Activity: As tolerated
Additional Activity: No heavy lifting anything greater than 10 lbs for 1-week.
Driving Restrictions: No driving for 1 week
Bathing Restrictions: OK to Shower
Others Tests: Please call Dr. Khalil's office to schedule your 30-day follow-up echocardiogram.
Other Services: Cardiac Rehab
Wound Care: No lotions, powders, or creams to puncture sites.
Please call your physician if you notice any pain, swelling, or redness on your procedural sites.
Specialty Instructions: Weigh Daily- Call MD for wt gain/loss 3 lbs overnight/5 lbs in 1 week
Stand Alone Forms: DC Inst - Implanted Device, DC Inst - TransFemoral (TAVR)
Referrals:
CT Transitional Care Nurse [Outside] - in one to two days
Referral Note:
The Cardiothoracic Transitional Care Nurse will call you to set up a visit in 1-2 days.
[facility] [Outside] - 03/17/25 10:00 am
Referral Note: Cardiac Rehab Orientation appointment is on 03/17/25 at 10:00
The Cardiac Rehab gym is located on the first floor of the [facility].
Thu Mccall PA-C [Non-Admitting Privileges] - 03/16/25 11:30 am
Mireya Emerson DO [Family Provider, Family Practice] - in four to six weeks
Referral Note: Please make an appointment in four to six weeks.
Prescriptions:
New
aspirin 81 mg Tablet,Delayed Release (Dr/Ec)
81 mg PO DAILY Qty: 0 0RF
acetaminophen 325 mg Tablet
650 mg PO Q6HPRN PRN (Reason: REYNA, mild pain, or fever >101F) Qty: 0 0RF
Continued
celecoxib 200 mg Capsule
200 mg PO DAILY
amlodipine 2.5 mg Tablet
2.5 mg PO DAILY
dutasteride 0.5 mg Capsule
0.5 mg PO DAILY
cyanocobalamin (vitamin B-12) [Vitamin B-12] 1,000 mcg Tablet
1,000 mcg PO DAILY
sertraline 25 mg Tablet
25 mg PO DAILY
Discontinued
lisinopril 20 mg Tablet
10 mg PO DAILY
Patient Comments:
Patient states does not take anymore.
Discharge Orders:
Discharge Patient (As Directed); Ordered 02/18/25
Ordered By: Alisa Guerrero
Care Plan Goals
Care Plan Goals:
Problem: Readiness for enhanced knowledge related to diagnosis and treatment plan
Goal: Understand your diagnosis and treatment plan needs, including medications if applicable.
Instructions: Know your diagnosis, underlying causes and treatment plan options, including medications if applicable. Consult with your health care team to learn about your diagnosis and treatment plan, including medications if applicable.
Discharge Date and Time
Print Language: INDONESIAN
--- NOTE | 2025-02-18 11:50 | PTCARENOTE ---
Discharge order received. 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 PIV x2 d/c. Pt getting dressed.
--- NOTE | 2025-02-18 12:24 | PTCARENOTE ---
discharge instructions reviewed. All questions answered. Relayed that Dr. Dorantes's office will follow up with patient to make follow up PPM appt. Rhythm star returned to CT DIRECTOR OF OPERATIONS office as per CT DIRECTOR OF OPERATIONS.
== END 2025-02-18 12:53 | disposition home or self-care (01) | DRG 267 ==
LOC: CVICU 04:48
PROVIDERS: Clinical Nurse Specialist Acute Care; Internal Medicine Cardiovascular Disease; Nurse Practitioner Adult Health; Student in an Organized Health Care Education/Training Program; ADMITTING PHYSICIAN Thoracic Surgery (Cardiothoracic Vascular Surgery); FAMILY PHYSICIAN Family Medicine
PROC: 02RF38Z Replacement of Aortic Valve with Zooplastic Tissue, Percutaneous Approach (ICD-10-PCS; 2025-02-16)
PROC: 02HK3JZ Insertion of Pacemaker Lead into Right Ventricle, Percutaneous Approach (ICD-10-PCS; 2025-02-17)
PROC: 02H63JZ Insertion of Pacemaker Lead into Right Atrium, Percutaneous Approach (ICD-10-PCS; 2025-02-17)
PROC: 0JH606Z Insertion of Pacemaker, Dual Chamber into Chest Subcutaneous Tissue and Fascia, Open Approach (ICD-10-PCS; 2025-02-17)
PROC: 5A1223Z Performance of Cardiac Pacing, Continuous (ICD-10-PCS; 2025-02-17)
DX: I35.0 Nonrheumatic aortic (valve) stenosis (principal); Z00.6 Encounter for examination for normal comparison and control in clinical research program; I44.2 Atrioventricular block, complete; I50.32 Chronic diastolic (congestive) heart failure; E78.5 Hyperlipidemia, unspecified; I11.0 Hypertensive heart disease with heart failure; F32.A Depression, unspecified; F41.9 Anxiety disorder, unspecified; H91.93 Unspecified hearing loss, bilateral; H26.9 Unspecified cataract; I77.810 Thoracic aortic ectasia; R00.1 Bradycardia, unspecified; Z79.899 Other long term (current) drug therapy; Z87.891 Personal history of nicotine dependence; Z97.4 Presence of external hearing-aid
CPT/HCPCS: 33208; 33210; 33361; 36415; 71045; 71046; 80048; 80053; 81003; 82248; 83036; 83735; 83880; 85025; 85027; 85347; 85610; 86850; 86900; 86901; 87070; 93005; 93308; 93321; 93325; 99152; 99153; C1760; C1769; C1785; C1887; C1894; C1898; Q9967

== ENCOUNTER 2025-03-24 10:38 | Outpatient (RCR) | payer OTHER, SELFPAY ==
[2025-03-22 09:52] LABS: HDL Cholesterol 43 mg/dl; LDL Cholesterol, Calculated 97 mg/dl; Very Low Density Lipoprotein 24 mg/dl (0-30)
== END 2025-03-24 23:59 | disposition home or self-care (01) ==
LOC: CRHB 10:38
PROVIDERS: ATTENDING PHYSICIAN Internal Medicine Cardiovascular Disease
DX: Z95.2 Presence of prosthetic heart valve (principal)
CPT/HCPCS: 80061; G0422; G0423

== ENCOUNTER 2025-04-14 10:03 | Outpatient (RCR) | payer OTHER, SELFPAY | END 2025-04-14 23:59 | disposition home or self-care (01) | LOC: CRHB 10:03 | PROVIDERS: ATTENDING PHYSICIAN Internal Medicine Cardiovascular Disease; FAMILY PHYSICIAN Family Medicine | DX: Z95.2 Presence of prosthetic heart valve (principal) | CPT/HCPCS: G0422; G0423 ==

== ENCOUNTER 2025-05-24 10:04 | Outpatient (RCR) | payer OTHER, SELFPAY | END 2025-05-24 23:59 | disposition home or self-care (01) | LOC: CRHB 10:04 | PROVIDERS: ATTENDING PHYSICIAN Internal Medicine Cardiovascular Disease; FAMILY PHYSICIAN Family Medicine | DX: Z95.2 Presence of prosthetic heart valve (principal) | CPT/HCPCS: G0422; G0423 ==